=== PATIENT | female | born 1970 | race African-American/Black ===

== ENCOUNTER 2024-10-31 07:22 | Emergency (ER) | payer OTHER ==
[2024-10-31 08:41] LABS: #Basophils 0.04 10x3/uL (0.0-0.2); #Eosinophils 0.28 10x3/uL (0.0-0.5); #Monocytes 0.48 10x3/uL (0.0-1.1); #Neutrophils 4.05 10x3/uL (1.5-8.4); %Basophils 0.6 % (0.0-2.0); %Eosinophils 3.9 % (0.0-6.0); %Lymphocytes 31.7 % (18.0-47.0); %Monocytes 6.7 % (0.0-10.0); %Neutrophils 56.7 % (40.0-75.0); Hematocrit 32.3 % (34.9-44.5); Hemoglobin 10.0 g/dL (12.0-15.5); Mean Corpuscular Hemoglobin 25.1 pg (27.0-33.0); Mean Corpuscular Volume 81.2 fL (81.6-98.3); Platelet Count 362 10x3/uL (150-450); Red Blood Cell (RBC) Count 3.98 10x6/uL (3.90-5.03); White Blood Cell (WBC) Count 7.14 10x3/uL (3.5-10.5)
[2024-10-31 08:56] LABS: ALT (SGPT) 9 U/L (Less than 34); AST (SGOT) 16 U/L (11-34); Albumin 3.7 g/dL (3.1-4.5); Alkaline Phosphatase 75 U/L (40-110); Anion Gap 12 mmol/L (10-20); BUN (Urea Nitrogen) 30 mg/dL (9.8-20.1); Bilirubin, Total 0.2 mg/dL (0.3-1.2); CK (CPK) 149 U/L (29-168); Calc. Creatinine Clearance 0 mL/min (70-130); Calcium 9.8 mg/dL (7.8-10.44); Carbon Dioxide 31 mmol/L (22-29); Chloride 102 mmol/L (98-107); Globulin 3.6 g/dL (2.4-3.5); Glucose 84 mg/dL (70-105); Magnesium 1.9 mg/dL (1.6-2.6); Potassium 4.0 mmol/L (3.5-5.1); Sodium 141 mmol/L (136-145)
== END 2024-10-31 09:45 | disposition home or self-care (01) ==
LOC: CSHERS 07:22
DX: M54.32 Sciatica, left side (principal); M54.31 Sciatica, right side; E11.40 Type 2 diabetes mellitus with diabetic neuropathy, unspecified; I10 Essential (primary) hypertension; Z79.84 Long term (current) use of oral hypoglycemic drugs; Z79.899 Other long term (current) drug therapy
CPT/HCPCS: 80053; 82550; 83735; 85025; 96374; J2270

== ENCOUNTER 2024-11-09 12:15 | Emergency (ER) | payer OTHER ==
[2024-11-09] MEDS ORDERED: Acetaminophen 500 MG TAB ONE (12:57)
[2024-11-09] MEDS ORDERED: Aspirin Chewable 81 MG TAB ONE (12:57)
[2024-11-09] MEDS ORDERED: Ondansetron PF 4 MG/2 ML Vial ONE (12:57)
[2024-11-09 13:00] LABS: #Basophils 0.05 10x3/uL (0.0-0.2); #Eosinophils 0.08 10x3/uL (0.0-0.5); #Monocytes 0.62 10x3/uL (0.0-1.1); #Neutrophils 5.64 10x3/uL (1.5-8.4); %Basophils 0.5 % (0.0-2.0); %Eosinophils 0.8 % (0.0-6.0); %Lymphocytes 38.3 % (18.0-47.0); %Monocytes 6.0 % (0.0-10.0); %Neutrophils 54.2 % (40.0-75.0); Hematocrit 33.8 % (34.9-44.5); Hemoglobin 10.9 g/dL (12.0-15.5); Mean Corpuscular Hemoglobin 25.3 pg (27.0-33.0); Mean Corpuscular Volume 78.6 fL (81.6-98.3); Platelet Count 442 10x3/uL (150-450); Red Blood Cell (RBC) Count 4.30 10x6/uL (3.90-5.03); White Blood Cell (WBC) Count 10.39 10x3/uL (3.5-10.5)
[2024-11-09 13:16] LABS: ALT (SGPT) 12 U/L (Less than 34); AST (SGOT) 16 U/L (11-34); Albumin 4.2 g/dL (3.1-4.5); Alkaline Phosphatase 92 U/L (40-110); Anion Gap 17 mmol/L (10-20); BUN (Urea Nitrogen) 30 mg/dL (9.8-20.1); Bilirubin, Total 0.3 mg/dL (0.3-1.2); Calc. Creatinine Clearance 0 mL/min (70-130); Calcium 9.9 mg/dL (7.8-10.44); Carbon Dioxide 22 mmol/L (22-29); Chloride 105 mmol/L (98-107); Globulin 3.2 g/dL (2.4-3.5); Glucose 115 mg/dL (70-105); Lipase 49 U/L (8-78); Potassium 4.0 mmol/L (3.5-5.1); Sodium 140 mmol/L (136-145)
[2024-11-09 13:22] LABS: Troponin I Less than 0.010 ng/mL (< 0.028)
== END 2024-11-09 14:19 | disposition home or self-care (01) ==
LOC: CSHERS 12:15
DX: R07.9 Chest pain, unspecified (principal); I10 Essential (primary) hypertension; E11.9 Type 2 diabetes mellitus without complications; Z79.899 Other long term (current) drug therapy; Z79.84 Long term (current) use of oral hypoglycemic drugs; Z79.85 Long-term (current) use of injectable non-insulin antidiabetic drugs
CPT/HCPCS: 71045; 80053; 83690; 84484; 85025; 85379; 93005; 94760; 96374; J2270; J2405